=== PATIENT | female | born 1970 | race Caucasian/White ===

== ENCOUNTER 2019-10-11 06:49 | Emergency (ER) | payer OTHER, MEDICAID ==
[~2019-10-11] VITALS: Ht 162.6 cm; Wt 66.5 kg
[2019-10-11] MEDS ORDERED: ASPIRIN 81MG TABLET PO ONE (08:00)
[2019-10-11 08:06] LABS: CLARITY URINE CLOUDY (CLEAR); COLOR URINE YELLOW (YELLOW); KETONES URINE NEGATIVE (NEGATIVE); LEUKOCYTE ESTERASE URINE NEGATIVE (NEGATIVE); NITRITE URINE NEGATIVE (NEGATIVE); OCCULT BLOOD URINE NEGATIVE (NEGATIVE); PH URINE 7.5 (4.5-8.0); PROTEIN URINE NEGATIVE (NEGATIVE); SPECIFIC GRAVITY URINE 1.003 (1.005-1.030); UROBILINOGEN URINE 0.2 E.U./dL (0.2-1.0)
[2019-10-11 08:07] LABS: BASOPHILS % 0.6 % (0.0-2.0); EOSINOPHILS % 1.9 % (0.0-5.0); HEMATOCRIT. 44.2 % (36.0-48.0); HEMOGLOBIN. 15.2 g/dL (12.0-16.0); LYMPHOCYTES % 13.7 % (20.0-50.0); MEAN CORPUSCULAR HEMOGLOBIN 31.1 pg (28.0-32.0); MEAN CORPUSCULAR VOLUME 90.6 fL (81.0-99.0); MEAN PLATELET VOLUME 9.2 fl (7.4-10.4); MONOCYTES % 7.8 % (2.0-8.0); PLATELET 249 x1000/uL (130-400); RED BLOOD CELL COUNT 4.88 mill/uL (4.2-5.4); RED CELL DISTRIBUTION WIDTH 13.3 % (11.6-14.6)
[2019-10-11 08:13] LABS: CHLORIDE 108 mEq/L (98-107)
[2019-10-11 08:14] LABS: INR 0.9; PARTIAL THROMBOPLASTIN TIME 29.5 sec (23.4-31.0)
[2019-10-11] MEDS ORDERED: LORAZEPAM 0.5MG TABLET PO ONE (10:30)
[2019-10-11 10:54] VITALS: BP 145/80
== END 2019-10-11 10:57 | disposition home or self-care (01) ==
LOC: ER 06:49
DX: F41.1 Generalized anxiety disorder (principal); R07.9 Chest pain, unspecified; Z98.890 Other specified postprocedural states
CPT/HCPCS: 36415; 71045; 80053; 81003; 81025; 83690; 84484; 85025; 85610; 85730; 93005; 99285; Z7610

== ENCOUNTER 2024-01-30 00:44 | Emergency (ER) | payer MEDICAID, OTHER ==
[~2024-01-30] VITALS: Ht 162.6 cm; Wt 58.0 kg
[2024-01-30 01:07] VITALS: O2SAT 100
[2024-01-30] MEDS ORDERED: DICL100G58 TP (01:43)
[2024-01-30] MEDS: IBUPROFEN 600MG TABLET PO ONE (02:19)
[2024-01-30 02:20] VITALS: BP 131/83; PULSE 73; RESP 17; TEMP 98.4
== END 2024-01-30 02:24 | disposition home or self-care (01) ==
LOC: ER 00:44
DX: S43.402A Unspecified sprain of left shoulder joint, initial encounter (principal); Z98.890 Other specified postprocedural states; X58.XXXA Exposure to other specified factors, initial encounter; Y93.89 Activity, other specified; Y92.89 Other specified places as the place of occurrence of the external cause; Y99.8 Other external cause status
CPT/HCPCS: 73030; 99283